=== PATIENT | male | born 1980 | race Caucasian/White ===

== ENCOUNTER 2017-01-06 21:48 | Emergency (ER) | payer MEDICAID ==
[~2017-01-06] VITALS: Ht 170.2 cm; Wt 86.0 kg
[2017-01-06 21:54] VITALS: Ht 170.2 cm; Wt 86.0 kg
[2017-01-06] MEDS ORDERED: BEN25 PO (23:56)
[2017-01-06] MEDS ORDERED: EPIN0.3P4 INJ (23:56)
[2017-01-06] MEDS ORDERED: PRED20TA PO (23:56)
[2017-01-07] MEDS ORDERED: FAMOTIDINE 20 MG TAB PO ONE
[2017-01-07] MEDS ORDERED: METHYLPREDNISOLONE 125 MG INJ IM ONE
[2017-01-07] MEDS ORDERED: DIPHENHYDRAMINE 25 MG CAP PO ONE
--- NOTE | 2017-01-07 00:22 | ERD ---
ER Documentation Chief Complaint Date/Time DATE: 01/07/17 TIME: 00:19 Chief Complaint generalized rash, no SOB. Was peeling a jen, then rash started HPI 36-year-old male patient with no significant past medical history presents the ED complaining of hives and rashes that started 3 hours ago after peeling and eating jne. States that he started to develop a red hive-like rash all over his abdomen, back, extremities. Denies any lip swelling or tongue swelling. Denies any shortness of breath, wheezing, fever, chills, nausea, vomiting, abdominal pain. Denies any new use of soaps or detergents. Denies any insects or pets. ROS All systems reviewed and are negative except as per history of present illness. Medications Home Meds Active Scripts Epinephrine (Epipen 2-Kilo) 0.3 Mg/0.3 Ml Pen.injctr, 1 EA INJ ONCE Y for ALLERGIC REACTION, #1 EA Prov:FARHAT XIONG PA-C 01/06/17 Diphenhydramine Hcl* (Benadryl*) 25 Mg Cap, 25 MG PO Q6 Y for ITCHING/RASH, #30 TAB Prov:FARHAT XIONG PA-C 01/06/17 Prednisone* (Prednisone*) 20 Mg Tab, 40 MG PO DAILY for 4 Days, TAB Prov:FARHAT XIONG PA-C 01/06/17 Allergies Allergies: Coded Allergies: No Known Allergy (Unverified , 01/06/17) PMhx/Soc Medical and Surgical Hx: pt denies Medical Hx, pt denies Surgical Hx Hx Alcohol Use: Yes Hx Substance Use: No Hx Tobacco Use: Yes Smoking Status: Former smoker Physical Exam Vitals Vital Signs Date Time Temp Pulse Resp B/P Pulse Ox O2 Delivery O2 Flow Rate FiO2 01/06/17 21:54 97.1 97 18 140/92 96 Physical Exam Const: [id number], well-nourished. In no acute distress. Head: Atraumatic, normocephalic Eyes: Normal Conjunctiva without injection. No purulent discharge. PERRL. EOMI ENT: Normal external ear. Ear canal without erythema. Tympanic membrane pearly josue without effusion or bulging. Nasal canal clear with normal turbinates. Moist oropharynx without tonsillar exudates. Non-erythematous pharynx. Uvula midline. No drooling. No trismus. Neck: Full range of motion. No meningismus. No cervical lymphadenopathy. Resp: Clear to auscultation bilaterally. No wheezing, rhonchi, rales, or crackles. No accessory muscle use. No retractions. Cardio: Regular rate and rhythm. No murmurs, rubs or gallops. Abd: Soft, non tender, non distended. Normal bowel sounds. No palpable masses. No rebound tenderness. No guarding. Skin: No petechiae. Erythematous blanching wheals diffusely noted on patient's abdomen, chest, back, extremities. No fluctuance. No induration. No bleeding noted. No purpura. Back: No midline tenderness. No CVA tenderness. Ext: No cyanosis, or edema. Neur: Awake and alert. Psych: Normal Mood and Affect Results 24 hrs Current Medications Medications (Trade) Dose Ordered Sig/Marbin Route PRN Reason Start Time Stop Time Status Last Admin Dose Admin Methylprednisolone Sodium Succinate (Solu-Medrol) 125 mg ONCE ONCE IM 01/07/17 00:00 01/07/17 00:01 DC 01/06/17 23:50 Diphenhydramine HCl (Benadryl) 25 mg ONCE ONCE PO 01/07/17 00:00 01/07/17 00:01 DC 01/07/17 00:01 Famotidine (Pepcid) 20 mg ONCE ONCE PO 01/07/17 00:00 01/07/17 00:01 DC 01/07/17 00:02 Procedures/MDM This is a 36-year old male patient with no sniffing a past medical history presents the ED complaining of urticaria that occurred 3 hours after he was peeling and eating angle. Patient is afebrile and nontoxic-appearing. Patient has normal vital signs. Patient likely has urticaria secondary to an allergic reaction to angle. Patient was treated here in the ED with Solu-Medrol, famotidine and Benadryl with improvement. No angioedema noted. No tongue swelling noted. No indication for EpiPen at this time. Patient however will be prescribed an EpiPen, Benadryl and prednisone. Patient was strictly instructed to follow-up with his primary care physician for allergy testing. Low suspicion for anaphylaxis. Low suspicion for scabies, SJS/TEN, erythema multiforme, sepsis, cellulitis, necrotizing fascitis, gangrene, meningococcemia or other emergent conditions. Follow up with primary care physician in 1-2 days. Instructed patient to return to the ED sooner for any worsening symptoms. Patient's questions were answered. Patient understood and agreed with discharge plan. Patient discharged stable. Departure Diagnosis: Primary Impression: Urticaria Additional Impression: Allergic reaction to food Encounter type: initial encounter Qualified Code: T78.1XXA - Allergic reaction to food, initial encounter Condition: Stable Patient Instructions: Food Allergy, Hives Ref[facility] Usted se john hecho un examen mdico de control que le indica que no est en dominga condicin que requiera tratamiento urgente en el Departamento de Emergencia. Un estudio ms profundo y el tratamiento de rendon condicin pueden esperar sin ningn riesgo hasta que usted sea atendida/o en el consultorio de rendon mdico o dominga cl rubén. Es responsabilidad suya arreglar dominga neeta para el seguimiento del jillian. MANEJO DE CONDICIONES NO URGENTES EN EL FUTURO 1) Si usted tiene un mdico de atencin primaria: Usted debera llamar a rendon mdico de atencin primaria antes de venir al departamento de emergencia. Despus de las horas de consultorio, rendon doctor o rendon asociado/a est disponible por telfono. El mdico o enfermero de cheo en el servicio telefnico puede asesorarle por aaron medio para atender el problema, o jillian contrario se puede programar dominga neeta. 2) Si usted no tiene un mdico de atencin primaria: Llame al mdico o clnica de referencia que aparece abajo chalino las horas de consultorio para hacer dominga neeta para que le vean. CLINICAS: [facility] [phone] [address] [facility] 965 [phone] [address] [facility] [phone] [facility] 251 [phone] [place] [id number] [phone] [facility]. [phone] [facility]. [facility] () Usted se jonh hecho un examen mdico de control que le indica que no est en dominga condicin que requiera tratamiento urgente en el Departamento de Emergencia. Un estudio ms profundo y el tratamiento de rendon condicin pueden esperar sin ningn riesgo hasta que usted sea atendida/o en el consultorio de rendon mdico o dominga cl rubén. Es responsabilidad suya arreglar dominga neeta para el seguimiento del jillian. MANEJO DE CONDICIONES NO URGENTES EN EL FUTURO 1) Si usted tiene un mdico de atencin primaria: Usted debera llamar a rendon mdico de atencin primaria antes de venir al departamento de emergencia. Despus de las horas de consultorio, rendon doctor o rendon asociado/a est disponible por telfono. El mdico o enfermero de cheo en el servicio telefnico puede asesorarle por aaron medio para atender el problema, o jillian contrario se puede programar dominga neeta. 2) Si usted no tiene un mdico de atencin primaria: Llame al mdico o condado institucions de referencia que aparece abajo chalino las horas de consultorio para hacer dominga neeta para que le vean. SI USTED NO PUEDE PAGAR PARA BOBY UN MEDICO puede ir a: [facility] [address] [place] [address] [facility] [address] [place] [address] [facility] [address] [place] [address] [facility] [address] [place] [address] [facility]CIAL[facility] Additional Instructions: Llame al doctor MAANA y christopher dominga NEETA PARA DENTRO DE 2-3 GILMORE para dominga referencia para las pruebas de alergia. Dgale a la secretaria que nosotros le instruimos hacer esta neeta.Avise o llame si rendon condicin se empeora antes de la neeta. Regresa aqui si peor o no mejor. FARHAT XIONG PA-C Jan 07, 2017 00:22
== END 2017-01-07 00:18 | disposition home or self-care (01) ==
LOC: FTE 21:48
DX: L50.0 Allergic urticaria (principal); T78.1XXA Other adverse food reactions, not elsewhere classified, initial encounter; Z87.891 Personal history of nicotine dependence
CPT/HCPCS: 96372; J2930; Z7502; Z7610